=== PATIENT | male | born 2000 | race Caucasian/White ===

== ENCOUNTER 2022-01-23 02:17 | Emergency (ER) | payer SELFPAY ==
[2022-01-23 02:49] LABS: #Monocytes 0.4 thou/uL (0.11-0.59); #Neutrophils 5.2 thou/uL (1.40-6.50); %Basophils 0.1 % (0.0-1.0); %Eosinophils 0.4 % (0.0-10.0); %Lymphocytes 26.7 % (28.0-48.0); %Neutrophils 67.8 % (31.0-61.0); Hemoglobin 15.3 g/dL (14.0-18.0); Mean Corpuscular HGB CONC 33.7 g/dL (32.0-36.0); Mean Corpuscular Hemoglobin 31.7 pg (25.0-35.0); Mean Platelet Volume 6.7 fL (7.4-10.4); Platelet Count 171 thou/uL (130-400); RBC Distribution Width 11.3 % (11.5-14.5); Red Blood Cell (RBC) Count 4.83 mill/uL (4.00-5.20); White Blood Cell (WBC) Count 7.6 thou/uL (4.8-10.8)
[2022-01-23 03:05] LABS: ALT (SGPT) 14 U/L (8-55); AST (SGOT) 19 U/L (10-45); Albumin 4.2 g/dL (3.5-5.0); Alcohol 274 mg/dL (Less than 10); Alkaline Phosphatase 65 U/L (50-130); Anion Gap 15 mmol/L (10-20); BUN (Urea Nitrogen) 10 mg/dL (8.4-21.0); Bilirubin, Total 0.5 mg/dL (0.2-1.2); Calc. Creatinine Clearance 0 mL/min (70-130); Calcium 8.7 mg/dL (7.8-10.44); Carbon Dioxide 22 mmol/L (22-29); Chloride 106 mmol/L (98-107); Estimated GFR 101; Globulin 3.1 g/dL (2.4-3.5); Glucose 98 mg/dL (70-105); Potassium 3.7 mmol/L (3.5-5.1); Protein, Total 7.3 g/dL (6.0-8.3); Sodium 139 mmol/L (136-145)
[2022-01-23] MEDS ORDERED: Iopamidol-370 76% 500 ML 1 ML ONE (10:29)
== END 2022-01-23 08:10 | disposition home or self-care (01) ==
LOC: ERS 02:17
DX: S09.90XA Unspecified injury of head, initial encounter (principal); S00.212A Abrasion of left eyelid and periocular area, initial encounter; S40.212A Abrasion of left shoulder, initial encounter; S50.312A Abrasion of left elbow, initial encounter; S60.511A Abrasion of right hand, initial encounter; F10.129 Alcohol abuse with intoxication, unspecified; V00.848A Other accident with standing micro-mobility pedestrian conveyance, initial encounter; Y90.8 Blood alcohol level of 240 mg/100 ml or more
CPT/HCPCS: 36415; 70450; 71260; 72125; 74177; 80053; 80307; 84484; 85025; 93005; G0390; Q9967